=== PATIENT | male | born 1940 | race Caucasian/White ===

== ENCOUNTER 2017-10-28 13:38 | Inpatient (IN) ==
[2017-10-28 14:25] VITALS: BMI 22.3
[2017-10-28] MEDS ORDERED: HYDROCODONE/APAP 5mg/325mg TABLET PO PRN (14:59)
[2017-10-28] MEDS: NS 1,000 ML IV SCH (15:22)
[2017-10-28] MEDS: CEFTRIAXONE 1 G in NS 100 ML IV SCH (16:13)
--- NOTE | 2017-10-28 16:32 | XRay Report ---
Indication: acute hypoxic resp failure PROCEDURE: XR chest 1V: Encounter: Initial Comparison: None Findings: Prominent interstitial and airspace opacity bilaterally without lobar consolidation. Small bilateral effusions. No pneumothorax. Heart size is at the upper limits of normal. Mediastinal contours are within normal limits. Impression: Bilateral infiltrates with an appearance most consistent with moderate to severe pulmonary edema. .
[2017-10-28] MEDS ORDERED: ALBUTEROL 2.5mg/3ml (0.083%) NEB AEROSOL PRN (17:08)
[2017-10-28] MEDS: METHYLPREDNISOLONE SOD SUCC 125mg/2ml INJECTION IVP SCH ×2 (17:41→21:41)
--- NOTE | 2017-10-28 17:41 | History & Physical Report ---
History of Present Illness Date: 10/28/17 Chief complaint: Short of breath HPI: Nando Taylor is a 77 year old male directly admitted from Dr. Bullock's office for acute respiratory failure/hypoxia with saturation of 76% on room air. Mr. Taylor began to feel ill with a cough soon after New Year'. His symptoms became quite a bit worse about a week into October, with worsening cough, productive with pale yellow sputum by this time. He denied having sinus drainage /congestion or dysphagia. His breathing became more short, feeling dyspneic even at rest let alone with activity. He was running fevers and having chills. He has felt weak and lightheaded. He saw Dr. Bullock around 10/22/17 and was diagnosed with influenza and was Rx Tamiflu, but only completed 4 days of this b /c he was started to feel worse. reported hallucinations to Dr. Bullock, but she was not present for interview upon admission. Nando denied any confusion or mental status changes. He has not been eating well, and realized he was becoming dehydrated so started to drink large amounts of water over the last 2- 3 days. Around this time his breathing became quite a bit worse. He started noticing a little leg swelling. He denied chest pain or PND and was still able to sleep in bed rather than propping himself up. He quit smoking 2 days ago. He denied any nausea/vomiting but has had a little diarrhea. He denies seeing any blood in his stool. He denies any urinary pain, frequency, or hematuria. No rashes or wounds. 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 He followed up with Dr. Bullock on 10/28/17, at which time he was coughing so hard he nearly had posttussive emesis and became lightheaded with a coughing attack. Temp was 100.2. As mentioned, he was markedly hypoxic. Dr. Bullock contacted Dr. Hui, and Mr. Taylor was admitted to [facility] as an inpatient for further evaluation/treatment of acute hypoxia and to r/o sepsis. LOS is expected to exceed 2 overnights. Review of Systems All systems PM: 10-point ROS was reviewed, no additional remarkable complaints except - Constitutional Constitutional: Present: chills, fatigue, fever(s), weakness - EENMT Eyes: Absent: change in vision Nose: Absent: obstruction Mouth/Throat: Absent: sore throat, changes in swallowing - Cardiovascular Cardiovascular: Absent: chest pain Vascular: Present: pedal edema - Respiratory Respiratory: Present: cough, dyspnea, dyspnea on exertion, wheezing, excessive phlegm production - Gastrointestinal Gastrointestinal: Present: diarrhea. Absent: abdominal pain, constipation, hematochezia, melena, nausea, vomiting - Genitourinary Genitourinary: Absent: dysuria, hematuria, urinary frequency - Musculoskeletal Musculoskeletal: Present: muscle weakness. Absent: abnormal gait - Integumentary/Breasts Integumentary: Absent: rash, wounds - Neurological Neurological: Present: confusion, weakness. Absent: abnormal gait, frequent falls, headache(s) - Psychiatric Psychiatric: Present: visual hallucinations. Absent: anxiety - Endocrine Endocrine: Present: flushing - Hematologic/Lymphatic Hematologic/Lymphatic: Present: easy bruising - Allergic/Immunologic Allergic/Immunologic: Absent: seasonal rhinorrhea Past Medical History Atrial fibrillation, anticoagulated on Eliquis. Hypertension. Valvular heart disease. COPD. Sleep apnea. Chronic kidney disease stage III. GERD BPH. Anemia. Cataracts. Surgical History: EGD and colonoscopy with polypectomy in July [address] Morataya. Cardioverted in 2005. Inguinal herniorrhaphy in 1998. Hydrocele operation in 1982. Appendectomy in 1953 Family History Updates: Father had CHF and of a heart attack at age 79. Mother had Parkinson's and around age 53. He has 3/2 siblings. A sister and brother had heart disease and sister at age 76. - Social History Smoking status: Current every day smoker (quit on 10/26/17) Packs per day: 0.5 Packs-years: 50 Substance use type: does not use Alcohol intake: current Alcohol intake frequency: 0-2 drinks per day (drinks 1 ounce of wine each night with supper) Current occupational status: employed Current occupation: todd Social history: Primary care physician: Dr. Bullock. Manager [employer]: Dr. Ayala. Youth Manager: Dr. Hitchcock. Medications Home Medications Medication Instructions Recorded Confirmed Type Amiodarone [Pacerone] 1 tab PO DAILY 07/23/17 10/28/17 History Ascorbate Calcium [Vitamin C] 500 mg PO DAILY 07/23/17 10/28/17 History Cholecalciferol (Vitamin D3) 1 tab PO DAILY 07/23/17 10/28/17 History [Vitamin D3] Levothyroxine Sodium 25 mcg PO DAILY 07/23/17 10/28/17 History Tamsulosin [Flomax] 1 cap PO HS 07/23/17 10/28/17 History Vitamin B Complex [Super B-50 1 each PO DAILY 07/23/17 10/28/17 History Complex] Acetaminophen [Tylenol] 500 mg PO O 10/28/17 10/28/17 History Apixaban [Eliquis] 5 mg PO BID 10/28/17 10/28/17 History Allergies Allergy/AdvReac Type Severity Reaction Status Date / Time No Known Allergies Allergy Verified 07/26/17 10:40 Exam Vital Signs: Temperature 97.7 F 10/28/17 14:12 Pulse Rate 89 10/28/17 14:12 Respiratory Rate 22 10/28/17 14:12 Blood Pressure 176/78 H 10/28/17 14:12 Pulse Oximetry 88 L 10/28/17 14:12 Height/Weight/BMI: Height 1.8 m Weight 72.7 kg Body Mass Index 22.3 - Constitutional Present: mild distress, well nourished, well developed - Routine HEENT Exam Head: Present: normocephalic Eye: Present: PERRL. Absent: conjunctival icterus, scleral injection ENT: Present: mucous membranes dry, oropharynx clear - Routine Neck Exam Present: supple. Absent: lymphadenopathy - Routine Respiratory Exam Present: decreased breath sounds, rales (Left), wheezes - Routine Cardiovascular Exam Present: RRR, S1, S2 - Routine Abdominal Exam Present: soft, normoactive bowel sounds, non distended, non tender - Routine Extremities Exam Present: edema (1+ bilateral pedal edema), pulses intact. Absent: calf tenderness - Routine Skin Exam Present: intact, dry, warm Comments: Face is flushed - Routine Neurological Exam Present: alert, oriented X3, CN II-XII intact, moving all extremities, normal speech. Absent: tremors - Routine Psychiatric Exam Present: normal affect, normal thought process, cooperative Results - Labs CBC & Chem 7: 10/28/17 15:19 10/28/17 20:32 Microbiology Results: Microbiology 10/28/17 15:22 Peripheral/Iv Start Blood Culture - Preliminary Culture Initiated - Results Pending 10/28/17 15:19 Peripheral/Iv Start Blood Culture - Preliminary Culture Initiated - Results Pending - ABG Interpretation Attestation: I reviewed and interpreted this ABG. ABG results: 10/28/17 15:35 ABG pH 7.500 H ABG pCO2 32 L ABG pO2 57 L ABG HCO3 25 ABG Total CO2 26.0 ABG O2 Saturation 92.0 L ABG Base Excess 2.3 H - Pulse Oximetry Interpretation Digit-Finger Actions taken: none - Imaging and Cardiology Chest x-ray Status: image reviewed by me Additional comments: Bilateral infiltrates versus pulmonary edema Assessment and Plan (1) Acute respiratory failure with hypoxemia Current visit: Yes Status: Acute Assessment and Plan: Impression Acute hypoxic respiratory failure, present on admission. Hyponatremia (123), present on admission Incompletely treated influenza infection (4 day course of Tamiflu) Bilateral infiltrates, pulmonary edema versus pneumonia Possible sepsis: SIRS criteria include leukocytosis (12.5) and tachypnea (22) COPD with exacerbation. Atrial fibrillation, anticoagulated on Eliquis. Hypertension. Valvular heart disease. Sleep apnea. Chronic kidney disease stage III. GERD BPH. Anemia. Plan Admit, inpatient status under the hospitalist service. Possible sepsis secondary to pneumonia: Rocephin and doxycycline have been initiated. Lactic acid and procalcitonin were both negative. IV fluids were started for hyponatremia and we will recheck sodium later this evening, however, given his chest x-ray findings, we may need to consider diuresis. He also has symptoms consistent with CHF and Dr. Ayala has been consulted. He is able to maintain saturations between 89 and 91% on 6 L of oxygen, however at some point he may need BiPAP. Continue Eliquis, monitor telemetry, continue amiodarone for A fib. For COPD with exacerbation, IV steroids have been started. Will schedule DuoNeb treatments every 4 hours and Pulmicort twice a day. We'll ask respiratory to provide tobacco cessation information. Nicotine patch will be available if needed. CODE STATUS: Patient would like to discuss with family before making a decision and for this reason will remain a full code. Admission orders were discussed with Dr. Hui. DVT Prophylaxis: Eliquis Resuscitation Status: Full Code - Physician Narrative Physician: Stephie Hui MD Narrative: Date: 10/28/17 Time: 2129 I have independently evaluated and examined this patient. I reviewed the chart, the patient's history, and the DEAL ARCHITECT/PA's documented findings as above. We discussed and formulated the assessment and plan as above with additions as below: Mr. Taylor was seen earlier in the day at which time he described progressive dyspnea and cough productive of pale yellow sputum. Cough caused him to feel lightheaded and weak and he was concerned he was getting dehydrated. His appetite has been impaired and he's had trouble sleeping. 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 He was recently treated with Tamiflu for total of 4 days after which it was discontinued because his symptoms were worsening. Patient was acutely hypoxic when he was seen in the office today were oxygen saturation was 72% on room air and coarse crackles at the left base were described. Patient is an ill-appearing male who is alert when I spoke with him. Respirations were labored although airflow is fairly good and there are coarse sounds at the left > right bases; no wheezing was appreciated Cardiac rhythm is regular with low-grade tachycardia; trace edema (SCDs on with some compression of edema evident) Chest x-ray reviewed by myself demonstrating increased interstitial markings bilaterally suggestive of pulmonary edema-cannot exclude viral pneumonia, infiltrates may be slightly more dense on the left than the right EKG also reviewed by myself demonstrating sinus rhythm, poor R-wave progression in the precordial leads, but no acute ST/T-wave changes. Sodium 123, blood gas reviewed, minor leukocytosis; proBNP 3400, troponin 0.021- 0.022 Urine studies will be obtained for evaluation of hyponatremia-would be consistent with CHF; does not appear to be significantly volume overloaded although there is some minor edema in the lower extremities. Significant be hypoxic, may require BiPAP for support due to tachypnea evident earlier. Empiric antibiotics although suspect viral rather than bacterial infection due to recent history. RT to induce sputum for culture. Discussed with Dr. Ayala will see in consultation due to elevated BNP and radiographic changes suggesting heart failure. Discussed with Dr. Bullock. Hospital Course Summary Disclaimer: The visit summary below is not to be considered part of the above Progress Note. Hospital Course: 10/28/17 Admit, inpatient status under the hospitalist service. Possible sepsis secondary to pneumonia: Rocephin and doxycycline have been initiated. Lactic acid and procalcitonin were both negative. IV fluids were started for hyponatremia and we will recheck sodium later this evening, however, given his chest x-ray findings, we may need to consider diuresis. He also has symptoms consistent with CHF and Dr. Ayala has been consulted. He is able to maintain saturations between 89 and 91% on 6 L of oxygen, however at some point he may need BiPAP. Continue Eliquis, monitor telemetry, continue amiodarone for A fib. For COPD with exacerbation, IV steroids have been started. Will schedule DuoNeb treatments every 4 hours and Pulmicort twice a day. We'll ask respiratory to provide tobacco cessation information. Nicotine patch will be available if needed. CODE STATUS: Patient would like to discuss with family before making a decision and for this reason will remain a full code.
[2017-10-28] MEDS: BUDESONIDE INH.SOLN 0.5mg/2ml NEB IPPB SCH (19:58)
[2017-10-28] MEDS: ALBUTEROL/IPRATROPIUM 2.5mg-0.5mg/3ml NEB AEROSOL SCH ×2 (19:58→22:44)
[2017-10-28] MEDS: AMIODARONE 200 MG TABLET PO SCH (21:41)
[2017-10-28] MEDS: APIXABAN 5 MG TABLET PO SCH (21:42)
[2017-10-28] MEDS: TAMSULOSIN 0.4 MG CAPSULE PO SCH (21:42)
[2017-10-29] MEDS: ALBUTEROL/IPRATROPIUM 2.5mg-0.5mg/3ml NEB AEROSOL SCH ×6 (01:20→19:35)
[2017-10-29] MEDS: NS 1,000 ML IV SCH ×3 (01:55→22:28)
[2017-10-29] MEDS: METHYLPREDNISOLONE SOD SUCC 125mg/2ml INJECTION IVP SCH ×4 (03:04→21:07)
[2017-10-29] MEDS: BUDESONIDE INH.SOLN 0.5mg/2ml NEB IPPB SCH ×2 (07:55→19:35)
[2017-10-29] MEDS ORDERED: AMIODARONE 200 MG TABLET PO SCH (09:00)
[2017-10-29] MEDS: APIXABAN 5 MG TABLET PO SCH ×2 (09:17→21:09)
[2017-10-29] MEDS: LEVOTHYROXINE 25 MCG TABLET PO SCH (09:18)
--- NOTE | 2017-10-29 11:31 | Cardiology Consult Note ---
<Lilian Davis - Last Filed: 11/01/17 09:48> History of Present Illness Consult date: 10/28/17 Requesting physician: Stephie Hui Consult reason: congestive heart failure Chief complaint: dyspnea, cough History of present illness: Nando is a 77 year old male who is known to Dr. Ayala with a history of precordial pain, PAF, Aortic dilation, NR AoV insufficiency, CAD and HLD who was admitted from Dr. Bullock's office for acute respiratory failure/hypoxia with saturation of 76% on room air. He first began to feel ill with a cough soon after ' and his symptoms became quite a bit worse about a week into October, with worsening cough, productive with pale yellow sputum by this time. His breathing became more short, feeling dyspneic even at rest let alone with activity. He was running fevers and having chills. He has felt weak and lightheaded. He was diagnosed with influenza and was Rx Tamiflu, but only completed 4 days of this b/c he was started to feel worse. He has not been eating well, and realized he was becoming dehydrated so started to drink large amounts of water over the last 2-3 days. His breathing became quite a bit worse. He started noticing a little leg swelling. He denied chest pain or PND and was still able to sleep in bed rather than propping himself up. He quit smoking 2 days ago. He was admitted to [facility] as an inpatient for further evaluation/treatment of acute hypoxia and to r/o sepsis. Dr. Ayala is consulted for evaluation of CHF and we appreciate the consult Review of Systems - Constitutional Constitutional: Present: as per HPI, chills, fever(s), weakness - EENMT Eyes: Absent: change in vision Balance: Absent: vertigo Mouth/Throat: Absent: sore throat - Cardiovascular Cardiovascular: Present: dyspnea on exertion, edema. Absent: chest pain, palpitations, syncope, orthopnea Vascular: Present: pedal edema - Respiratory Respiratory: Present: cough, dyspnea on exertion, chest congestion - Gastrointestinal Gastrointestinal: Present: diarrhea. Absent: abdominal pain, nausea, vomiting - Genitourinary Genitourinary: Absent: dysuria - Integumentary/Breasts Integumentary: Absent: rash - Neurological Neurological: Present: dizziness - Endocrine Endocrine: Absent: palpitations PFSH Patient Stated Medical History Cataracts Yes Other HEENT Yes: FREQUENT COLDS Cardiac Arrhythmia Yes: hx a fib Hypertension Yes Valvular Heart Disease Yes Chronic Obstructive Pulmonary Yes Disease (COPD) Sleep Apnea Yes: does not have machine, declines Gastroesophageal Reflux Yes Disease Hx Benign Prostatic Yes Hyperplasia Hx Renal Disease Yes: CKD STAGE 3 Other Yes: CK STAGE 3- SEE DR BAKER Anemia Yes Other Infectious influenza+ 10/22/2017 Surgical History: EGD and colonoscopy with polypectomy in July [address] Morataya. Cardioverted in 2005. Inguinal herniorrhaphy in 1998. Hydrocele operation in 1982. Appendectomy in 1953 Family History: Father - CHF Mother - Parkinson's disease Sister - CV disease - Social History Smoking status: Current every day smoker (quit on 10/26/17) Time spent discussing smoking cessation with patient: 3 to 10 minutes Substance use type: does not use Alcohol intake frequency: does not drink Housing: house Household members: spouse Current occupational status: employed Current occupation: todd Current residence: Apartment/Private Home Medications Home Medications Medication Instructions Recorded Confirmed Type Amiodarone [Pacerone] 1 tab PO DAILY 07/23/17 10/28/17 History Ascorbate Calcium [Vitamin C] 500 mg PO DAILY 07/23/17 10/28/17 History Cholecalciferol (Vitamin D3) 1 tab PO DAILY 07/23/17 10/28/17 History [Vitamin D3] Levothyroxine Sodium 25 mcg PO DAILY 07/23/17 10/28/17 History Tamsulosin [Flomax] 1 cap PO HS 07/23/17 10/28/17 History Vitamin B Complex [Super B-50 1 each PO DAILY 07/23/17 10/28/17 History Complex] Acetaminophen [Tylenol] 500 mg PO O 10/28/17 10/28/17 History Apixaban [Eliquis] 5 mg PO BID 10/28/17 10/28/17 History Allergies Allergy/AdvReac Type Severity Reaction Status Date / Time No Known Allergies Allergy Verified 07/26/17 10:40 Exam Vital signs: Temperature 96.7 F L 10/29/17 06:00 Pulse Rate 79 10/29/17 07:00 Respiratory Rate 24 10/29/17 07:55 Blood Pressure 147/74 H 10/29/17 06:00 Pulse Oximetry 97 10/29/17 07:55 - Constitutional mild distress, well nourished, cooperative - Routine HEENT Exam Head: Present: normocephalic ENT: Present: mucous membranes moist - Routine Neck Exam Absent: JVD, carotid bruit - Routine Chest/Breast/Axilla Exam Chest wall: Absent: tenderness - Routine Respiratory Exam Present: decreased breath sounds, CTA bilaterally - Routine Cardiovascular Exam Present: RRR, murmur (I/). Absent: JVD - Routine Abdominal Exam Present: soft, normoactive bowel sounds - Routine Extremities Exam Present: no edema - Routine Skin Exam Present: intact, dry, warm - Routine Neurological Exam Present: alert, oriented X3 - Routine Psychiatric Exam Present: normal affect, normal thought process Results 11/01/17 03:50 11/01/17 03:50 Cardiac Enzymes 10/28/17 10/28/17 10/29/17 Range/Units 15:19 20:32 05:03 AST 35 (17-59) U/L Troponin I 0.021 0.022 < 0.012 (0-0.12) ng/ml B-Natriuretic Peptide 3400 H (0-175) pg/mL Coagulation 10/28/17 Range/Units 15:19 B-Natriuretic Peptide 3400 H (0-175) pg/mL CBC 10/28/17 10/29/17 Range/Units 15:19 05:03 WBC 12.5 H 9.1 (4.5-11.0) T/MM3 RBC 3.93 L 3.72 L (4.50-5.90) M/MM3 Hgb 12.4 L 11.6 L (13.5-17.5) GM/DL Hct 34.7 L 33.2 L (41-53) % Plt Count 359 361 (130-400) T/MM3 Neut # (Auto) Not performed Not performed Lymph # (Auto) Not performed Not performed Burke # (Auto) Not performed Not performed Eos # (Auto) Not performed Not performed Baso # (Auto) Not performed Not performed Comprehensive Metabolic Panel 10/28/17 10/28/17 10/28/17 Range/Units 15:19 20:32 22:05 Sodium 123 L 123 L 122 L (134-144) MEQ/L Potassium 4.2 (3.6-5) MEQ/L Chloride 89 L (98-107) MEQ/L Carbon Dioxide 26 (22-30) MEQ/L BUN 28.0 H (9-20) MG/DL Creatinine 1.1 (0.8-1.5) MG/DL Glucose 128 H (75-110) MG/DL Calcium 8.5 (8.4-10.2) MG/DL AST 35 (17-59) U/L ALT 51 (21-72) U/L Alkaline Phosphatase 101 (38-126) U/L Total Protein 6.4 (6.3-8.2) G/DL Albumin 3.3 L (3.5-5.0) G/DL 10/29/17 Range/Units 05:03 Sodium 126 L (134-144) MEQ/L Potassium 4.2 (3.6-5) MEQ/L Chloride 95 L D (98-107) MEQ/L Carbon Dioxide 24 (22-30) MEQ/L BUN 24.0 H (9-20) MG/DL Creatinine 0.9 D (0.8-1.5) MG/DL Glucose 180 H (75-110) MG/DL Calcium 8.1 L (8.4-10.2) MG/DL AST (17-59) U/L ALT (21-72) U/L Alkaline Phosphatase (38-126) U/L Total Protein (6.3-8.2) G/DL Albumin 3.0 L (3.5-5.0) G/DL Intake and Output 10/28/17 10/29/17 10/29/17 22:59 06:59 14:59 Intake Total 940 / 940 1000 / 1000 Output Total 175 / 175 Balance 765 / 765 1000 / 1000 Intake: IV 100 / 100 1000 / 1000 Ceftriaxone 1 g In Ns 100 ml @ 100 / 100 200 mls/hr IV Q24H CHRIS Rx#: [id number] Ns 1,000 ml @ 100 mls/hr IV . 1000 / 1000 Q10H CHRIS Rx#:[id number] Oral 840 / 840 Output: Urine 175 / 175 Other: Urine Appearance Clear Urine Color Dark Lissette Yellow Urine Odor Foul Stool Color Brown Stool Consistency Soft Formed Size of Bowel Movement Small # Voids 1 1 Weight 164 lb 3.91 oz Patient Weight 10/30/17 06:59 Weight 164 lb 3.91 oz - Imaging and Cardiology Echo: report reviewed EKG results: image reviewed Imaging & Cardiology Narrative: Date of Exam: 10/28/17 Ordering Provider: Stephie Hui MD Type of Exam(s): XR chest 1V Reason for Exam(s): acute hypoxic resp failure Indication: acute hypoxic resp failure PROCEDURE: XR chest 1V: Encounter: Initial Comparison: None Findings: Prominent interstitial and airspace opacity bilaterally without lobar consolidation. Small bilateral effusions. No pneumothorax. Heart size is at the upper limits of normal. Mediastinal contours are within normal limits. Impression: Bilateral infiltrates with an appearance most consistent with moderate to severe pulmonary edema. 10/29/17 11:32 11/01/17 09:52 Date of Exam: 10/29/17 Type of Exam(s): US echo doppler complete DATE OF PROCEDURE 10/29/2017 This is a two-dimensional echo with spectral Doppler, color-flow and M-mode. It was obtained in a patient with congestive heart failure. Left atrial dimension is normal. Left ventricular end-diastolic dimension is normal. Left ventricular wall thickness is normal. LV systolic function is normal with ejection fraction of about 55%. Right atrium is normal. Right ventricle is normal. Aortic root dimension is normal. Mitral valve is morphologically normal with mild mitral regurgitation. Aortic valve is a trileaflet structure with mild fibrocalcific changes with no stenosis. Mild-to- moderate aortic insufficiency is present. Tricuspid valve shows mild tricuspid regurgitation with mild pulmonary hypertension with estimated pulmonary artery systolic pressure of 36. Pulmonary valve shows trace of pulmonary insufficiency. There is no pericardial effusion. IMPRESSION 1. Normal LV systolic function with ejection fraction of 55%. 2. Mild mitral regurgitation. 3. Aortic sclerosis with [id number] aortic insufficiency. 4. Mild tricuspid regurgitation with mild pulmonary hypertension with estimated pulmonary artery pressure of 36. 5. Trace of pulmonary insufficiency. EKG interpretations - EKG EKG results cardiology: sinus rhythm - Blocks, axis, hypertrophy, ST abn Repolarization changes or abnormalities: Q-T interval prolongation (QTC 461) Assessment and Plan - Assessment and Plan (1) Pulmonary edema Status: Acute Bilateral infiltrates most consistent with moderate to severe pulmonary edema seen on admission CXR - Diurese with Lasix 40mg IV q 12H - Replace potassium 10 meq BID - Fluid restriction please, NA 122 today (2) Acute respiratory failure with hypoxemia Status: Acute Requires high flow NC at 8L - per attending (3) Paroxysmal atrial fibrillation Status: Chronic Continue Amiodarone for antiarrhythmic therapy - Continue Eliquis for stroke prevention. (4) Atherosclerotic heart disease of [place] coronary artery without angina pectoris Status: Chronic (5) Mixed hyperlipidemia Status: Chronic Started on Atorvastatin on October 13, 2017. -LFTs done on admission 10/28/17. -Needs LFTs and Lipids in 6 weeks. (6) Aortic aneurysm without rupture Status: Chronic recent CT showed 4.8cm dilation, continue routine monitoring (7) Hyponatremia Status: Acute Na 122 today Restrict fluid to 1800mL - Assessment and Plan Pulmonary edema: Bilateral infiltrates most consistent with moderate to severe pulmonary edema seen on admission CXR - Diurese with Lasix 40mg IV q 12H - Replace potassium 10 meq BID - Fluid restriction please, NA 122 today Acute Resp. Failure: Requires high flow NC at 8L - per attending Hyponatremia: Na 122 today - Restrict fluid to 1800mL A Fib: Continue Amiodarone for antiarrhythmic therapy - Continue Eliquis for stroke prevention. HLD: Started on Atorvastatin on October 13, 2017. -Needs LFTs and Lipids in 6 weeks. Thank you for allowing us to participate in this patients care Hospital Course Summary Disclaimer: The visit summary below is not to be considered part of the above Progress Note. Hospital Course: 10/28/17 Admit, inpatient status under the hospitalist service. Possible sepsis secondary to pneumonia: Rocephin and doxycycline have been initiated. Lactic acid and procalcitonin were both negative. IV fluids were started for hyponatremia and we will recheck sodium later this evening, however, given his chest x-ray findings, we may need to consider diuresis. He also has symptoms consistent with CHF and Dr. Ayala has been consulted. He is able to maintain saturations between 89 and 91% on 6 L of oxygen, however at some point he may need BiPAP. Continue Eliquis, monitor telemetry, continue amiodarone for A fib. For COPD with exacerbation, IV steroids have been started. Will schedule DuoNeb treatments every 4 hours and Pulmicort twice a day. We'll ask respiratory to provide tobacco cessation information. Nicotine patch will be available if needed. CODE STATUS: Patient would like to discuss with family before making a decision and for this reason will remain a full code. <Len Ayala - Last Filed: 11/03/17 13:04> [facility]LY [facility] Patient Stated Medical History Cataracts Yes Other HEENT Yes: FREQUENT COLDS Cardiac Arrhythmia Yes: hx a fib Hypertension Yes Valvular Heart Disease Yes Chronic Obstructive Pulmonary Yes Disease (COPD) Sleep Apnea Yes: does not have machine, declines Gastroesophageal Reflux Yes Disease Hx Benign Prostatic Yes Hyperplasia Hx Renal Disease Yes: CKD STAGE 3 Other Yes: CK STAGE 3- SEE DR BAKER Anemia Yes Other Infectious influenza+ 10/22/2017 Exam Vital signs: Temperature 96.4 F L 11/02/17 07:30 Pulse Rate 90 11/02/17 13:45 Respiratory Rate 19 11/02/17 08:50 Blood Pressure 161/73 H 11/02/17 07:30 Pulse Oximetry 84 L 11/02/17 13:45 Results 11/01/17 03:50 11/02/17 04:17 Intake and Output 11/02/17 11/03/17 11/03/17 22:59 06:59 14:59 Intake Total 300 / 300 Output Total 600 / 600 Balance -300 / -300 Intake: Oral 300 / 300 Output: Urine 600 / 600 Other: Urine Color Yellow Assessment and Plan - Attestation Attestation Narrative: 11/03/17 13:04 Recommendation After examining the patient I agree with the above assessment. I am involved in the formulation of the patient's plan of care. - Assessment and Plan (1) Acute respiratory failure with hypoxemia Status: Acute (2) Atherosclerotic heart disease of [place] coronary artery without angina pectoris Status: Chronic (3) Mixed hyperlipidemia Status: Chronic (4) Aortic aneurysm without rupture Status: Chronic (5) Paroxysmal atrial fibrillation Status: Chronic (6) Pulmonary edema Status: Acute (7) Hyponatremia Status: Acute Hospital Course Summary Disclaimer: The visit summary below is not to be considered part of the above Progress Note.
--- NOTE | 2017-10-29 14:01 | Progress Note ---
- Date 10/29/17 Subjective: Patient is seen sitting in his chair after lunch. He reports he is better than yesterday. Not coughing much. Appetite is good, but not able to eat much. No chest pain, nausea vomiting. No swelling in extremities. No bowel movement yet this hospitalization. He was having diarrhea prior to coming in. Objective Vital signs: Temperature 96.7 F L 10/29/17 06:00 Pulse Rate 79 10/29/17 07:00 Respiratory Rate 24 10/29/17 11:18 Blood Pressure 147/74 H 10/29/17 06:00 Pulse Oximetry 94 10/29/17 11:18 Height/Weight/BMI: Height 1.8 m Weight 74.5 kg Body Mass Index 22.3 - Constitutional Present: no acute distress, well nourished, well developed - Routine HEENT Exam Head: Present: normocephalic, atraumatic - Routine Respiratory Exam Present: decreased breath sounds, CTA bilaterally, distant breath sounds. Absent: wheezes - Routine Cardiovascular Exam Present: RRR. Absent: murmur - Routine Abdominal Exam Present: soft, normoactive bowel sounds, non distended. Absent: tenderness - Routine Extremities Exam Present: no edema, normal capillary refill - Routine Skin Exam Present: dry, warm - Routine Neurological Exam Present: alert, oriented X3 - Routine Lymphatic Exam Lymphatic: Absent: adenopathy - Routine Psychiatric Exam Present: normal affect, cooperative Results - Labs CBC & Chem 7: 10/29/17 05:03 10/29/17 19:39 Microbiology Results: Microbiology 10/28/17 15:22 Peripheral/Iv Start Blood Culture - Preliminary Culture Initiated - Results Pending 10/28/17 15:19 Peripheral/Iv Start Blood Culture - Preliminary Culture Initiated - Results Pending - ABG Interpretation ABG results: 10/28/17 15:35 ABG pH 7.500 H ABG pCO2 32 L ABG pO2 57 L ABG HCO3 25 ABG Total CO2 26.0 ABG O2 Saturation 92.0 L ABG Base Excess 2.3 H Assessment and Plan (1) Acute respiratory failure with hypoxemia Current visit: Yes Status: Acute Assessment and Plan: Impression Acute hypoxic respiratory failure, present on admission. Hyponatremia (123), present on admission Incompletely treated influenza infection (4 day course of Tamiflu) Bilateral infiltrates, pulmonary edema versus pneumonia Possible sepsis: SIRS criteria include leukocytosis (12.5) and tachypnea (22) COPD with exacerbation. Atrial fibrillation, anticoagulated on Eliquis. Hypertension. Valvular heart disease. Sleep apnea. Chronic kidney disease stage III. GERD BPH. Anemia. Plan Leukocytosis has improved. WBC 12.5-->9.1. Continues on ceftriaxone and doxycycline for coverage of possible bacterial pneumonia. Hyponatremia improving on 122-->126. Fena score 0% - consistent with pre-renal etiology as was expected. Continuing on normal saline for his hyponatremia. 8 L high flow oxygen to maintain sats greater than 90%. Weight is up almost 2 kg. Currently not on any diuretics. Cardiology has been consulted. Echo is pending. Appreciate Dr. Ayala's input. Continue IV steroids, DuoNeb and Pulmicort. Vitals are stable. Labs reviewed. DVT Prophylaxis: SCD's Resuscitation Status: Full Code - Physician Narrative Physician: Stephie Hui MD Narrative: Date: 10/29/17 Time: 1949 I have independently evaluated and examined this patient. I reviewed the chart, the patient's history, and the VIDEO GAME TECHNICIAN/PA's documented findings as above. We discussed and formulated the assessment and plan as above with additions as below: Mr. Taylor complains of sinus congestion due to continuous oxygen use; he is unsure if dyspnea has improved or not and really hasn't been moving around enough to know if he is short of breath with activities. He continues to wheeze some and has not had enough sputum production to collect a sample. He denied lightheadedness. Patient is alert and in no distress at time of assessment but remains on 9 L supplemental oxygen. Respirations are nonlabored with good airflow, crackles are present one half up lung anand posteriorly and more evident on the left than the right Regular cardiac rhythm FeNa <0.03, urine sodium <5, urine creatinine 124.6-kidneys at least believe patient is dehydrated; creatinine improved with fluids overnight Chest x-ray with diffuse increased bilateral infiltrates, possible heart failure although can't exclude viral pneumonia Diuresis initiated per cardiology, echo pending-A she reports history of a dilated aortic root at 4.8 cm-may well have significant aortic insufficiency. Sodium improving progressively, continue to monitor twice daily. Repeat chest x-ray in a.m., continue steroids. d/w cardiology. Hospital Course Summary Disclaimer: The visit summary below is not to be considered part of the above Progress Note. Hospital Course: 10/28/17 Admit, inpatient status under the hospitalist service. Possible sepsis secondary to pneumonia: Rocephin and doxycycline have been initiated. Lactic acid and procalcitonin were both negative. IV fluids were started for hyponatremia and we will recheck sodium later this evening, however, given his chest x-ray findings, we may need to consider diuresis. He also has symptoms consistent with CHF and Dr. Ayala has been consulted. He is able to maintain saturations between 89 and 91% on 6 L of oxygen, however at some point he may need BiPAP. Continue Eliquis, monitor telemetry, continue amiodarone for A fib. For COPD with exacerbation, IV steroids have been started. Will schedule DuoNeb treatments every 4 hours and Pulmicort twice a day. We'll ask respiratory to provide tobacco cessation information. Nicotine patch will be available if needed. CODE STATUS: Patient would like to discuss with family before making a decision and for this reason will remain a full code. 10/29/17 Leukocytosis has improved. WBC 12.5-->9.1. Continues on ceftriaxone and doxycycline for coverage of possible bacterial pneumonia. Hyponatremia improving on 122-->126. Fena score 0% - consistent with pre-renal etiology as was expected. Continuing on normal saline for his hyponatremia. 8 L high flow oxygen to maintain sats greater than 90%. Weight is up almost 2 kg with improved Cr. Currently not on any diuretics. FeNa < 0.03% insistent with prerenal state despite radiographic findings suggestive heart failure. Cardiology has been consulted. Echo is pending. Appreciate Dr. Ayala's input. Continue IV steroids, DuoNeb and Pulmicort.
[2017-10-29] MEDS: CEFTRIAXONE 1 G in NS 100 ML IV SCH (14:40)
[2017-10-29] MEDS: FUROSEMIDE 40 MG/4 ML INJECTION IVP SCH ×2 (17:11→21:10)
[2017-10-29] MEDS: TAMSULOSIN 0.4 MG CAPSULE PO SCH (21:09)
[2017-10-29] MEDS: AMIODARONE 200 MG TABLET PO SCH (21:09)
[2017-10-30] MEDS: ALBUTEROL/IPRATROPIUM 2.5mg-0.5mg/3ml NEB AEROSOL SCH ×7 (00:20→23:25)
[2017-10-30] MEDS: METHYLPREDNISOLONE SOD SUCC 125mg/2ml INJECTION IVP SCH ×4 (04:05→21:36)
[2017-10-30] MEDS: BUDESONIDE INH.SOLN 0.5mg/2ml NEB IPPB SCH ×2 (08:00→19:35)
[2017-10-30] MEDS: NS 1,000 ML IV SCH (09:23)
[2017-10-30] MEDS: LEVOTHYROXINE 25 MCG TABLET PO SCH (09:23)
[2017-10-30] MEDS: APIXABAN 5 MG TABLET PO SCH ×2 (09:24→21:24)
[2017-10-30] MEDS: FUROSEMIDE 40 MG/4 ML INJECTION IVP SCH ×2 (09:25→21:23)
[2017-10-30] MEDS: NICOTINE 14 MG PATCH TD PRN (09:27)
--- NOTE | 2017-10-30 11:29 | Progress Note ---
- Date 10/30/17 Subjective: Feeling a little better, still on 6-7L 02 however. Dyspneic with any exertion. Appetite improved. Slept okay. Bowels have not moved in a couple of days per his report. Objective Vital signs: Temperature 96.4 F L 10/30/17 08:00 Pulse Rate 90 10/30/17 08:00 Respiratory Rate 18 10/30/17 08:00 Blood Pressure 150/73 H 10/30/17 08:00 Pulse Oximetry 95 10/30/17 08:00 Height/Weight/BMI: Height 1.8 m Weight 74.5 kg Body Mass Index 22.3 - Constitutional Present: no acute distress, well nourished, well developed - Routine HEENT Exam Head: Present: normocephalic, atraumatic Eye: Present: EOMI. Absent: conjunctival icterus ENT: Present: mucous membranes moist, oropharynx clear - Routine Respiratory Exam Present: accessory muscle use, dyspnea, decreased breath sounds, rhonchi. Absent: wheezes, crackles - Routine Cardiovascular Exam Present: tachycardia - Routine Abdominal Exam Present: soft, non distended, non tender - Routine Extremities Exam Present: no edema, pulses intact - Routine Musculoskeletal Exam Musculoskeletal: Present: no tenderness - Routine Skin Exam Present: dry, warm. Absent: rash - Routine Neurological Exam Present: alert, normal speech - Routine Psychiatric Exam Present: normal affect Results - Labs CBC & Chem 7: 10/30/17 04:17 10/30/17 04:17 Microbiology Results: Microbiology 10/29/17 15:25 Sputum, Expectorated Gram Stain - Final 10/29/17 15:25 Sputum, Expectorated Sputum Culture - Preliminary Culture Initiated - Results Pending 10/28/17 15:19 Peripheral/Iv Start Blood Culture - Preliminary No Growth After 1 Day 10/28/17 15:22 Peripheral/Iv Start Blood Culture - Preliminary No Growth After 1 Day - ABG Interpretation ABG results: 10/28/17 15:35 ABG pH 7.500 H ABG pCO2 32 L ABG pO2 57 L ABG HCO3 25 ABG Total CO2 26.0 ABG O2 Saturation 92.0 L ABG Base Excess 2.3 H Assessment and Plan Assessment and Plan: Impression Acute hypoxic respiratory failure, present on admission. Hyponatremia (123), present on admission--> improved to 131 today --> Urine Na low, unclear if hypovolemic at admission, will monitor Incompletely treated influenza infection (4 day course of Tamiflu) Bilateral infiltrates, pulmonary edema versus pneumonia, improved with diuresis --> suspect some pulm edema + pneumonitis Possible sepsis: SIRS criteria include leukocytosis (12.5) and tachypnea (22) --> continue treatment with antibiotics + steroids + lasix; hold further IVF acutely COPD with exacerbation, on nebulized tx + steroids Atrial fibrillation, anticoagulated on Eliquis Hypertension. Valvular heart disease. Sleep apnea. Chronic kidney disease stage III. GERD BPH Anemia. Plan Leukocytosis worsening, likely due to steroids. Continues on ceftriaxone and doxycycline for coverage of possible bacterial pneumonia. Hyponatremia improving on saline, now taking po, will stop IVF and monitor on lasix 40 IV Q12H. Cr stbable at 1.1. 02 requirements improving slowly, continue to monitor on diuretics, steroids, antibiotics and nebulized treatments. Cardiology has been consulted. Echo is pending. Appreciate Dr. Ayala's input. Vitals are stable. Labs reviewed. Will repeat labs in AM for surveillance. Laxatives ordered prn; will schedule tomorrow if he has not had a bowel movement. - Physician Narrative Narrative: Date: 10/30/17 Time: 1126 Hospital Course Summary Disclaimer: The visit summary below is not to be considered part of the above Progress Note. Hospital Course: 10/28/17 Admit, inpatient status under the hospitalist service. Possible sepsis secondary to pneumonia: Rocephin and doxycycline have been initiated. Lactic acid and procalcitonin were both negative. IV fluids were started for hyponatremia and we will recheck sodium later this evening, however, given his chest x-ray findings, we may need to consider diuresis. He also has symptoms consistent with CHF and Dr. Ayala has been consulted. He is able to maintain saturations between 89 and 91% on 6 L of oxygen, however at some point he may need BiPAP. Continue Eliquis, monitor telemetry, continue amiodarone for A fib. For COPD with exacerbation, IV steroids have been started. Will schedule DuoNeb treatments every 4 hours and Pulmicort twice a day. We'll ask respiratory to provide tobacco cessation information. Nicotine patch will be available if needed. CODE STATUS: Patient would like to discuss with family before making a decision and for this reason will remain a full code. 10/29/17 Leukocytosis has improved. WBC 12.5-->9.1. Continues on ceftriaxone and doxycycline for coverage of possible bacterial pneumonia. Hyponatremia improving on 122-->126. Fena score 0% - consistent with pre-renal etiology as was expected. Continuing on normal saline for his hyponatremia. 8 L high flow oxygen to maintain sats greater than 90%. Weight is up almost 2 kg with improved Cr. Currently not on any diuretics. FeNa < 0.03% insistent with prerenal state despite radiographic findings suggestive heart failure. Cardiology has been consulted. Echo is pending. Appreciate Dr. Ayala's input. Continue IV steroids, DuoNeb and Pulmicort. 10/30/17 Leukocytosis worsening, likely due to steroids. Continues on ceftriaxone and doxycycline for coverage of possible bacterial pneumonia. Hyponatremia improving on saline, now taking po, will stop IVF and monitor on lasix 40 IV Q12H. Cr stbable at 1.1. 02 requirements improving slowly, continue to monitor on diuretics, steroids, antibiotics and nebulized treatments. Cardiology has been consulted. Echo is pending. Appreciate Dr. Ayala's input. Vitals are stable. Labs reviewed. Will repeat labs in AM for surveillance. Laxatives ordered prn; will schedule tomorrow if he has not had a bowel movement.
--- NOTE | 2017-10-30 12:17 | Echocardiogram ---
DATE OF PROCEDURE 10/29/2017 This is a two-dimensional echo with spectral Doppler, color-flow and M-mode. It was obtained in a patient with congestive heart failure. Left atrial dimension is normal. Left ventricular end-diastolic dimension is normal. Left ventricular wall thickness is normal. LV systolic function is normal with ejection fraction of about 55%. Right atrium is normal. Right ventricle is normal. Aortic root dimension is normal. Mitral valve is morphologically normal with mild mitral regurgitation. Aortic valve is a trileaflet structure with mild fibrocalcific changes with no stenosis. Mild-to- moderate aortic insufficiency is present. Tricuspid valve shows mild tricuspid regurgitation with mild pulmonary hypertension with estimated pulmonary artery systolic pressure of 36. Pulmonary valve shows trace of pulmonary insufficiency. There is no pericardial effusion. IMPRESSION 1. Normal LV systolic function with ejection fraction of 55%. 2. Mild mitral regurgitation. 3. Aortic sclerosis with [id number] aortic insufficiency. 4. Mild tricuspid regurgitation with mild pulmonary hypertension with estimated pulmonary artery pressure of 36. 5. Trace of pulmonary insufficiency. MTDD
--- NOTE | 2017-10-30 15:04 | XRay Report ---
Indication: hypoxia PROCEDURE: XR chest 2V: Encounter: Initial Comparison: 10/28/2017 Findings: There is mild cardiomegaly with scattered patchy predominant perihilar interstitial parenchymal opacity, similar to prior exam. No definite lobar consolidation or pleural effusion. There is mild tortuosity of the descending thoracic aorta. There is mild degenerative disc disease of the thoracic spine. The vertebral body heights appear relatively well-preserved. Trachea is midline. No subdiaphragmatic free air. Impression: Cardiomegaly with moderate diffuse by predominant perihilar interstitial parenchymal opacity without lobar consolidation or pleural effusion. .
[2017-10-30] MEDS: CEFTRIAXONE 1 G in NS 100 ML IV SCH (16:34)
[2017-10-30] MEDS: TAMSULOSIN 0.4 MG CAPSULE PO SCH (21:24)
[2017-10-30] MEDS: AMIODARONE 200 MG TABLET PO SCH (21:24)
[2017-10-30] MEDS: SENNA + DOCUSATE TABLET PO PRN (21:48)
[2017-10-30] MEDS: NICOTINE PATCH REMOVAL TD PRN (21:49)
[2017-10-31] MEDS: ALBUTEROL/IPRATROPIUM 2.5mg-0.5mg/3ml NEB AEROSOL SCH ×5 (03:55→23:40)
[2017-10-31] MEDS: METHYLPREDNISOLONE SOD SUCC 125mg/2ml INJECTION IVP SCH ×4 (03:55→21:03)
[2017-10-31] MEDS: APIXABAN 5 MG TABLET PO SCH ×2 (09:08→21:03)
[2017-10-31] MEDS: NICOTINE 14 MG PATCH TD PRN (09:10)
[2017-10-31] MEDS: FUROSEMIDE 40 MG/4 ML INJECTION IVP SCH (09:21)
[2017-10-31] MEDS: LEVOTHYROXINE 25 MCG TABLET PO SCH (09:22)
[2017-10-31] MEDS: SENNA + DOCUSATE TABLET PO PRN ×2 (09:22→21:09)
[2017-10-31] MEDS: BUDESONIDE INH.SOLN 0.5mg/2ml NEB IPPB SCH ×2 (09:25→23:40)
--- NOTE | 2017-10-31 11:24 | Progress Note ---
- Date 10/31/17 Subjective: Feeling a little better today; 02 weaned down to 4-5L HF mask. Appetite improved, eating breakfast currently. TTE reviewed with normal EF, mildly elevated PA pressure, mild to mod AI No fevers overnight. Still coughing and dyspneic but feels better. No chest pain, chills. Objective Vital signs: Temperature 96.3 F L 10/31/17 00:39 Pulse Rate 81 10/31/17 08:00 Respiratory Rate 24 10/31/17 09:25 Blood Pressure 157/68 H 10/31/17 00:39 Pulse Oximetry 97 10/31/17 09:25 Height/Weight/BMI: Height 1.8 m Weight 74.4 kg Body Mass Index 22.3 - Constitutional Present: no acute distress, well nourished, well developed - Routine HEENT Exam Head: Present: normocephalic, atraumatic Eye: Present: PERRL. Absent: conjunctival icterus ENT: Present: mucous membranes moist, oropharynx clear - Routine Respiratory Exam Present: wheezes, diminished air movement. Absent: rhonchi, crackles - Routine Cardiovascular Exam Present: RRR. Absent: murmur - Routine Abdominal Exam Present: soft, non distended, non tender - Routine Extremities Exam Present: no edema, pulses intact - Routine Skin Exam Present: dry, warm. Absent: rash - Routine Neurological Exam Present: alert, oriented X3, normal speech - Routine Psychiatric Exam Present: normal affect Results - Labs CBC & Chem 7: 10/31/17 05:04 10/31/17 05:04 Microbiology Results: Microbiology 10/30/17 07:59 Urine Legionella Urinary Antigen - Final 10/28/17 15:19 Peripheral/Iv Start Blood Culture - Preliminary No Growth After 2 Days 10/28/17 15:22 Peripheral/Iv Start Blood Culture - Preliminary No Growth After 2 Days 10/29/17 15:25 Sputum, Expectorated Gram Stain - Final 10/29/17 15:25 Sputum, Expectorated Sputum Culture - Preliminary Early growth - Impressions Date of Exam: 10/30/17 Ordering Provider: Stephie Hui MD Type of Exam(s): XR chest 2V Reason for Exam(s): hypoxia Indication: hypoxia PROCEDURE: XR chest 2V: Encounter: Initial Comparison: 10/28/2017 Findings: There is mild cardiomegaly with scattered patchy predominant perihilar interstitial parenchymal opacity, similar to prior exam. No definite lobar consolidation or pleural effusion. There is mild tortuosity of the descending thoracic aorta. There is mild degenerative disc disease of the thoracic spine. The vertebral body heights appear relatively well-preserved. Trachea is midline. No subdiaphragmatic free air. Impression: Cardiomegaly with moderate diffuse by predominant perihilar interstitial parenchymal opacity without lobar consolidation or pleural effusion. Assessment and Plan Assessment and Plan: Impression Acute hypoxic respiratory failure, present on admission. Hyponatremia (123), present on admission--> stable today --> Urine Na low, unclear if hypovolemic at admission, will monitor off IVF Incompletely treated influenza infection (4 day course of Tamiflu) Bilateral infiltrates, pulmonary edema versus pneumonia, improved with diuresis --> suspect some pulm edema + pneumonitis Possible sepsis: SIRS criteria include leukocytosis (12.5) and tachypnea (22) --> continue treatment with antibiotics + steroids + lasix; hold further IVF acutely COPD with exacerbation, on nebulized tx + steroids Atrial fibrillation, anticoagulated on Eliquis Hypertension. Valvular heart disease. Sleep apnea. Chronic kidney disease stage III. GERD BPH Anemia, stable with Hb 11.4 Plan Continues on ceftriaxone and doxycycline for coverage of possible bacterial pneumonia. Hyponatremia stable off of IVF. Taking more po. DC IV lasix and change to once daily po lasix 40 mg and monitor. 02 requirements improving slowly, continue to monitor on diuretics, steroids, antibiotics and nebulized treatments. Cardiology has been consulted; appreciate input, TTE results reviewed as per HPI. Vitals are stable. Labs reviewed. Will repeat labs in AM for surveillance. Laxatives ordered prn; will continue. DVT Prophylaxis: SCD's, Eliquis Resuscitation Status: Full Code - Physician Narrative Narrative: Date: 10/31/17 Time: 1120 Hospital Course Summary Disclaimer: The visit summary below is not to be considered part of the above Progress Note. Hospital Course: 10/28/17 Admit, inpatient status under the hospitalist service. Possible sepsis secondary to pneumonia: Rocephin and doxycycline have been initiated. Lactic acid and procalcitonin were both negative. IV fluids were started for hyponatremia and we will recheck sodium later this evening, however, given his chest x-ray findings, we may need to consider diuresis. He also has symptoms consistent with CHF and Dr. Ayala has been consulted. He is able to maintain saturations between 89 and 91% on 6 L of oxygen, however at some point he may need BiPAP. Continue Eliquis, monitor telemetry, continue amiodarone for A fib. For COPD with exacerbation, IV steroids have been started. Will schedule DuoNeb treatments every 4 hours and Pulmicort twice a day. We'll ask respiratory to provide tobacco cessation information. Nicotine patch will be available if needed. CODE STATUS: Patient would like to discuss with family before making a decision and for this reason will remain a full code. 10/29/17 Leukocytosis has improved. WBC 12.5-->9.1. Continues on ceftriaxone and doxycycline for coverage of possible bacterial pneumonia. Hyponatremia improving on 122-->126. Fena score 0% - consistent with pre-renal etiology as was expected. Continuing on normal saline for his hyponatremia. 8 L high flow oxygen to maintain sats greater than 90%. Weight is up almost 2 kg with improved Cr. Currently not on any diuretics. FeNa < 0.03% insistent with prerenal state despite radiographic findings suggestive heart failure. Cardiology has been consulted. Echo is pending. Appreciate Dr. Ayala's input. Continue IV steroids, DuoNeb and Pulmicort. 10/30/17 Leukocytosis worsening, likely due to steroids. Continues on ceftriaxone and doxycycline for coverage of possible bacterial pneumonia. Hyponatremia improving on saline, now taking po, will stop IVF and monitor on lasix 40 IV Q12H. Cr stbable at 1.1. 02 requirements improving slowly, continue to monitor on diuretics, steroids, antibiotics and nebulized treatments. Cardiology has been consulted. Echo is pending. Appreciate Dr. Ayala's input. Vitals are stable. Labs reviewed. Will repeat labs in AM for surveillance. Laxatives ordered prn; will schedule tomorrow if he has not had a bowel movement. 10/31/17 Continues on ceftriaxone and doxycycline for coverage of possible bacterial pneumonia. WBC stable. Hyponatremia stable off of IVF. Taking more po. DC IV lasix and change to once daily po lasix 40 mg and monitor. 02 requirements improving slowly, continue to monitor on diuretics, steroids, antibiotics and nebulized treatments. Cardiology has been consulted; appreciate input, TTE results reviewed as per HPI. Vitals are stable. Labs reviewed. Will repeat labs in AM for surveillance. Laxatives ordered prn; will continue.
[2017-10-31] MEDS: CEFTRIAXONE 1 G in NS 100 ML IV SCH (18:09)
[2017-10-31] MEDS: AMIODARONE 200 MG TABLET PO SCH (21:03)
[2017-10-31] MEDS: TAMSULOSIN 0.4 MG CAPSULE PO SCH (21:03)
[2017-11-01] MEDS: ALBUTEROL/IPRATROPIUM 2.5mg-0.5mg/3ml NEB AEROSOL SCH ×6 (02:00→21:14)
[2017-11-01] MEDS: METHYLPREDNISOLONE SOD SUCC 125mg/2ml INJECTION IVP SCH ×4 (03:35→20:58)
[2017-11-01] MEDS: SALINE FLUSH 10ml SYRINGE IV PRN ×3 (05:24→21:01)
[2017-11-01] MEDS: BUDESONIDE INH.SOLN 0.5mg/2ml NEB IPPB SCH ×2 (09:17→21:14)
[2017-11-01] MEDS: APIXABAN 5 MG TABLET PO SCH ×2 (09:49→20:58)
[2017-11-01] MEDS: LEVOTHYROXINE 25 MCG TABLET PO SCH (09:50)
[2017-11-01] MEDS: FUROSEMIDE 40 MG TABLET PO SCH (09:51)
[2017-11-01] MEDS: NICOTINE PATCH REMOVAL TD PRN (10:30)
[2017-11-01] MEDS: NICOTINE 14 MG PATCH TD PRN (10:30)
[2017-11-01] MEDS ORDERED: PHENYLEPHRINE 0.25% EA NOSTRIL PRN (11:29)
[2017-11-01] MEDS: SALINE 0.65% NASAL SPRAY 44 ML BOTTLE EA NOSTRIL SCH ×2 (11:52→20:59)
--- NOTE | 2017-11-01 12:09 | Cardiology Progress Note ---
<Lilian Davis - Last Filed: 11/02/17 09:43> Subjective Principal diagnosis: Dyspnea, cough Interval history: Nando is seen in follow up for CHF, he is fully dressed and up in the recliner. eating his lunch. He denies chest pain Exam Vital signs: Temperature 96.4 F L 11/01/17 09:40 Pulse Rate 89 11/01/17 09:40 Respiratory Rate 18 11/01/17 09:40 Blood Pressure 160/71 H 11/01/17 09:40 Pulse Oximetry 95 11/01/17 09:40 - Constitutional no acute distress, well nourished, cooperative - Routine HEENT Exam Head: Present: normocephalic ENT: Present: mucous membranes moist - Routine Neck Exam Absent: JVD, carotid bruit - Routine Chest/Breast/Axilla Exam Chest wall: Absent: tenderness - Routine Respiratory Exam Present: CTA bilaterally, diminished air movement - Routine Cardiovascular Exam Present: RRR, no murmur - Routine Abdominal Exam Present: soft, normoactive bowel sounds - Routine Extremities Exam Present: no edema - Routine Skin Exam Present: intact, dry, warm - Routine Neurological Exam Present: alert, oriented X3 - Routine Psychiatric Exam Present: normal affect, normal thought process - Additional findings Additional findings: Hydrocodone Bitart/Acetaminophen ([place] 5/325) 1 tab PO Q6H PRN PRN Reason: Pain Albuterol Sulfate (Proventil Neb (0.083%)) 5 mg AEROSOL Q2H PRN PRN Reason: Shortness of air/wheezing Albuterol/Ipratropium (Duoneb) 3 ml AEROSOL Q4H [facility] Last Admin: 11/01/17 09:17 Dose: 3 ml Amiodarone HCl ([place]) 200 mg PO HS [facility] Last Admin: 10/31/17 21:03 Dose: 200 mg Apixaban (Eliquis) 5 mg PO BID [facility] Last Admin: 11/01/17 09:49 Dose: 5 mg Atorvastatin Calcium (Lipitor) 40 mg PO HS [facility] Budesonide (Pulmicort Inhalation) 0.5 mg IPPB RTBID [facility] Last Admin: 11/01/17 09:17 Dose: 0.5 mg Cholecalciferol (Vit. D-3) 1,000 unit PO DAILY [facility] Last Admin: 11/01/17 10:11 Dose: 1,000 unit Doxycycline Hyclate (Vibramycin) 100 mg PO BIDWM [facility] Last Admin: 11/01/17 09:50 Dose: 100 mg Furosemide (Lasix) 40 mg PO DAILY [facility] Last Admin: 11/01/17 09:51 Dose: 40 mg Ceftriaxone Sodium 1 g/ Sodium (Chloride) 100 mls @ 200 mls/hr IV Q24H [facility] Last Infusion: 10/31/17 19:00 Dose: Infused Levothyroxine Sodium (Synthroid) 25 mcg PO DAILY [facility] Last Admin: 11/01/17 09:50 Dose: 25 mcg Methylprednisolone Sodium Succinate (Solu-Medrol) 62.5 mg IVP Q6HR [facility] Last Admin: 11/01/17 09:51 Dose: 62.5 mg Nicotine (Nicoderm) 14 mg TD DAILY PRN Last Admin: 11/01/17 10:30 Dose: 14 mg Nicotine (Nicotine Patch Removal) 1 removal TD DAILY PRN Last Admin: 11/01/17 10:30 Dose: 1 removal Phenylephrine HCl (Rashad-Synephrine Nasal [place] (Mild)) 2 spray EA NOSTRIL Q4H PRN PRN Reason: Nasal congestion Stop: 11/03/17 23:59 Potassium Chloride (K-Dur) 10 meq PO BIDWM [facility] Last Admin: 11/01/17 09:50 Dose: 10 meq Senna/Docusate Sodium (Senna Plus Tablet) 1 tab PO BID PRN PRN Reason: Constipation Last Admin: 10/31/17 21:09 Dose: 1 tab Sodium Chloride (Iv Flush) 10 - 40 ml IV PRN PRN PRN Reason: Flushing Last Admin: 11/01/17 05:24 Dose: 20 ml Sodium Chloride (Deep Sea Nasal Moisturizing [place]) 1 - 2 spray EA NOSTRIL BID [facility] Last Admin: 11/01/17 11:52 Dose: 2 spray Tamsulosin HCl (Flomax) 0.4 mg PO HS [facility] Last Admin: 10/31/17 21:03 Dose: 0.4 mg Results 11/01/17 03:50 11/02/17 04:17 CBC 11/01/17 Range/Units 03:50 WBC 12.9 H (4.5-11.0) T/MM3 RBC 3.67 L (4.50-5.90) M/MM3 Hgb 11.5 L (13.5-17.5) GM/DL Hct 33.4 L (41-53) % Plt Count 403 H (130-400) T/MM3 Comprehensive Metabolic Panel 11/01/17 Range/Units 03:50 Sodium 133 L (134-144) MEQ/L Potassium 3.9 (3.6-5) MEQ/L Chloride 96 L (98-107) MEQ/L Carbon Dioxide 29 (22-30) MEQ/L BUN 35.0 H (9-20) MG/DL Creatinine 1.0 (0.8-1.5) MG/DL Glucose 162 H (75-110) MG/DL Calcium 8.8 (8.4-10.2) MG/DL Albumin 2.9 L (3.5-5.0) G/DL Intake and Output 10/31/17 11/01/17 11/01/17 22:59 06:59 14:59 Intake Total 100 / 100 600 / 600 480 / 480 Output Total 800 / 800 1275 / 1275 475 / 475 Balance -700 / -700 -675 / -675 5 / 5 Intake: IV 100 / 100 Ceftriaxone 1 g In Ns 100 ml @ 100 / 100 200 mls/hr IV Q24H [facility] Rx#: [id number] Oral 600 / 600 480 / 480 Output: Urine 800 / 800 1275 / 1275 475 / 475 Other: Urine Appearance Clear Clear Clear Sediment Urine Color Yellow Yellow Yellow Urine Odor Normal Normal Normal Weight 164 lb 10.965 oz Patient Weight 11/02/17 06:59 Weight 164 lb 10.965 oz - Imaging and Cardiology Imaging & Cardiology Narrative: = = = = = = = = = = = = = = = = = = = = = = = = = = = = = = = = = = = = = = = = = = = = = = = = = = = = = = = = = = = Date of Exam: 10/30/17 Ordering Provider: Stephie Hui MD Type of Exam(s): XR chest 2V Reason for Exam(s): hypoxia Indication: hypoxia PROCEDURE: XR chest 2V: Encounter: Initial Comparison: 10/28/2017 Findings: There is mild cardiomegaly with scattered patchy predominant perihilar interstitial parenchymal opacity, similar to prior exam. No definite lobar consolidation or pleural effusion. There is mild tortuosity of the descending thoracic aorta. There is mild degenerative disc disease of the thoracic spine. The vertebral body heights appear relatively well-preserved. Trachea is midline. No subdiaphragmatic free air. Impression: Cardiomegaly with moderate diffuse by predominant perihilar interstitial parenchymal opacity without lobar consolidation or pleural effusion. 11/01/17 12:58 11/01/17 16:43 Date of Exam: 11/01/17 Ordering Provider: Lilian Davis APRN Type of Exam(s): XR chest 1V Reason for Exam(s): pulm edema Indication: pulm edema XR chest 1V: Comparison: 10/30/2017 Technique: AP portable Findings: Patient showed similar heart size the previous study with continued increased interstitial and even some alveolar density however this has improved slightly as the previous study. No significant pleural effusions are identified. Impression: Although patient still demonstrates some hazy increased interstitial prominence findings have improved since the recent prior exam. Heart is not enlarged. No pleural effusions are noted. Assessment and Plan - Assessment and Plan (1) Pulmonary edema Status: Acute - Continue Fluid restriction ordered 10/29/17 (1800mL) - Continue Lasix 40mg po Qday for diuresis - Monitor renal and electrolytes (2) Acute respiratory failure with hypoxemia Status: Acute (3) Paroxysmal atrial fibrillation Status: Chronic (4) Atherosclerotic heart disease of [place] coronary artery without angina pectoris Status: Chronic (5) Mixed hyperlipidemia Status: Chronic (6) Aortic aneurysm without rupture Status: Chronic (7) Hyponatremia Status: Acute - Assessment and Plan Pulmonary edema: Bilateral infiltrates most consistent with moderate to severe pulmonary edema seen on admission CXR - Diurese with Lasix 40mg IV q 12H - Replace potassium 10 meq BID - Fluid restriction please, NA 122 today Acute Resp. Failure: Requires high flow NC at 8L - per attending Hyponatremia: Na 122 today - Restrict fluid to 1800mL A Fib: Continue Amiodarone for antiarrhythmic therapy - Continue Eliquis for stroke prevention. HLD: Started on Atorvastatin on October 13, 2017. -Needs LFTs and Lipids in 6 weeks. Thank you for allowing us to participate in this patients care 11/01/17 Pulmonary edema- Repeat chest X-ray - Amlodipine 5mg daily for better BP control - Atorvastatin 40mg daily. - Continue Fluid restriction ordered 10/29/17 (1800mL) - Continue Lasix 40mg po Qday for diuresis - Monitor renal and electrolytes Hospital Course Summary Disclaimer: The visit summary below is not to be considered part of the above Progress Note. Hospital Course: 10/28/17 Admit, inpatient status under the hospitalist service. Possible sepsis secondary to pneumonia: Rocephin and doxycycline have been initiated. Lactic acid and procalcitonin were both negative. IV fluids were started for hyponatremia and we will recheck sodium later this evening, however, given his chest x-ray findings, we may need to consider diuresis. He also has symptoms consistent with CHF and Dr. Ayala has been consulted. He is able to maintain saturations between 89 and 91% on 6 L of oxygen, however at some point he may need BiPAP. Continue Eliquis, monitor telemetry, continue amiodarone for A fib. For COPD with exacerbation, IV steroids have been started. Will schedule DuoNeb treatments every 4 hours and Pulmicort twice a day. We'll ask respiratory to provide tobacco cessation information. Nicotine patch will be available if needed. CODE STATUS: Patient would like to discuss with family before making a decision and for this reason will remain a full code. <Len Ayala - Last Filed: 11/03/17 13:24> Exam Vital signs: Temperature 96.4 F L 11/02/17 07:30 Pulse Rate 90 11/02/17 13:45 Respiratory Rate 19 11/02/17 08:50 Blood Pressure 161/73 H 11/02/17 07:30 Pulse Oximetry 84 L 11/02/17 13:45 Results 11/01/17 03:50 11/02/17 04:17 Intake and Output 11/02/17 11/03/17 11/03/17 22:59 06:59 14:59 Intake Total 300 / 300 Output Total 600 / 600 Balance -300 / -300 Intake: Oral 300 / 300 Output: Urine 600 / 600 Other: Urine Color Yellow Assessment and Plan - Assessment and Plan (1) Acute respiratory failure with hypoxemia Status: Acute (2) Atherosclerotic heart disease of [place] coronary artery without angina pectoris Status: Chronic (3) Mixed hyperlipidemia Status: Chronic (4) Aortic aneurysm without rupture Status: Chronic (5) Paroxysmal atrial fibrillation Status: Chronic (6) Pulmonary edema Status: Acute (7) Hyponatremia Status: Acute - Attestation Attestation Narrative: 11/03/17 13:24 Recommendation After examining the patient I agree with the above assessment. I am involved in the formulation of the patient's plan of care. Hospital Course Summary Disclaimer: The visit summary below is not to be considered part of the above Progress Note.
--- NOTE | 2017-11-01 13:40 | XRay Report ---
Indication: pulm edema XR chest 1V: Comparison: 10/30/2017 Technique: AP portable Findings: Patient showed similar heart size the previous study with continued increased interstitial and even some alveolar density however this has improved slightly as the previous study. No significant pleural effusions are identified. Impression: Although patient still demonstrates some hazy increased interstitial prominence findings have improved since the recent prior exam. Heart is not enlarged. No pleural effusions are noted. .
[2017-11-01] MEDS: AMLODIPINE 5 MG TABLET PO SCH (13:45)
[2017-11-01] MEDS: CEFTRIAXONE 1 G in NS 100 ML IV SCH (15:44)
[2017-11-01] MEDS ORDERED: NS FLUSH BAG 500ml IV PRN (15:45)
[2017-11-01] MEDS ORDERED: BISACODYL 10 MG SUPPOSITORY RECTALLY PRN (18:01)
--- NOTE | 2017-11-01 18:04 | Progress Note ---
- Date 11/01/17 Subjective: Nando is feeling much better overall. His cough has improved. He is not feeling too short of breath but is still requiring oxygen. His appetite is good, and he is eating "too much". He denies feeling weak or dizzy, and has been ambulating through the halls with nursing staff. His biggest complaint is that his legs have ballooned up. Objective Vital signs: Temperature 96.4 F L 11/01/17 16:01 Pulse Rate 86 11/01/17 16:01 Respiratory Rate 18 11/01/17 16:01 Blood Pressure 157/73 H 11/01/17 16:01 Pulse Oximetry 93 11/01/17 16:01 Height/Weight/BMI: Height 1.8 m Weight 74.7 kg Body Mass Index 22.3 - Constitutional Present: no acute distress, well nourished, well developed, thin - Routine HEENT Exam Head: Present: normocephalic Eye: Absent: conjunctival icterus, scleral injection ENT: Present: mucous membranes moist, oropharynx clear - Routine Respiratory Exam Present: diminished air movement Comments: Slightly coarse breath sounds throughout lung anand - Routine Cardiovascular Exam Present: RRR, S1, S2 - Routine Abdominal Exam Present: soft, normoactive bowel sounds, non distended, non tender - Routine Extremities Exam Present: edema (1-2+ lower extremity edema) - Routine Skin Exam Present: intact, dry, warm - Routine Neurological Exam Present: alert, oriented X3, normal speech - Routine Psychiatric Exam Present: normal affect, normal thought process, cooperative Results - Labs CBC & Chem 7: 11/01/17 03:50 11/01/17 03:50 Microbiology Results: Microbiology 10/28/17 15:19 Peripheral/Iv Start Blood Culture - Preliminary No Growth After 4 Days 10/28/17 15:22 Peripheral/Iv Start Blood Culture - Preliminary No Growth After 4 Days 10/29/17 15:25 Sputum, Expectorated Gram Stain - Final 10/29/17 15:25 Sputum, Expectorated Sputum Culture - Final Normal Respiratory Priscilla 10/30/17 07:59 Urine Legionella Urinary Antigen - Final Assessment and Plan (1) Acute respiratory failure with hypoxemia Current visit: Yes Status: Acute Assessment and Plan: Impression Acute hypoxic respiratory failure, present on admission. Hyponatremia (123), present on admission--> stable --> Urine Na low, Incompletely treated influenza infection (4 day course of Tamiflu) Bilateral infiltrates, pulmonary edema versus pneumonia, improved with diuresis --> suspect some pulm edema + pneumonitis Possible sepsis: SIRS criteria include leukocytosis (12.5) and tachypnea (22) --> continue treatment with antibiotics COPD with exacerbation, on nebulized tx + steroids Atrial fibrillation, anticoagulated on Eliquis Hypertension. Valvular heart disease. Sleep apnea. Chronic kidney disease stage III. GERD BPH Anemia, stable Plan Continue ceftriaxone and doxycycline for possible pneumonia. Today is day #5 of treatment. Chest x-ray shows improvement. Hyponatremia stable off of IVF; increased slightly to 133. His weight has gone up by 2 kg. Continue with daily Lasix 40 mg, and will give an additional 20 mg with lunch tomorrow. Oxygen demands are decreasing and he's down to 2 L. Will taper IV steroids to twice a day. Encourage ambulation/activity. Schedule Senna Plus; MOM PRN. DVT Prophylaxis: Eliquis Resuscitation Status: Full Code - Physician Narrative Physician: Stephie Hui MD Narrative: Date: 11/01/17 Time: 2100 I have independently evaluated and examined this patient. I reviewed the chart, the patient's history, and the C[employer] SAL[employer] AUDIT CLERK/PA's documented findings as above. We discussed and formulated the assessment and plan as above with additions as below: Mr. Taylor was seen earlier today and reported dyspnea and cough of improved significantly although he expressed concern about ankle edema. Fluid balance is positive about 5 L since admission but oxygenation has improved significantly as has hyponatremia and urine output. NAD, alert Faint crackles at the left base but otherwise respirations are nonlabored and breath sounds clear Regular rhythm, S1-S2, LV lift palpable Trace/+1 edema present Hyperpigmentation consistent with amiodarone present dorsal surface of the hands Continue gentle diuresis, agree with decreasing steroids-if stable tomorrow we' ll plan to convert to prednisone. Discontinue ceftriaxone-5 days completed; discontinued doxycycline tomorrow morning after 10th dose. Chest x-ray this a.m. reviewed by myself demonstrating no focal infiltrate or heart failure. Initial prominence described previously has resolved. Hospital Course Summary Disclaimer: The visit summary below is not to be considered part of the above Progress Note. Hospital Course: 10/28/17 Admit, inpatient status under the hospitalist service. Possible sepsis secondary to pneumonia: Rocephin and doxycycline have been initiated. Lactic acid and procalcitonin were both negative. IV fluids were started for hyponatremia and we will recheck sodium later this evening, however, given his chest x-ray findings, we may need to consider diuresis. He also has symptoms consistent with CHF and Dr. Ayala has been consulted. He is able to maintain saturations between 89 and 91% on 6 L of oxygen, however at some point he may need BiPAP. Continue Eliquis, monitor telemetry, continue amiodarone for A fib. For COPD with exacerbation, IV steroids have been started. Will schedule DuoNeb treatments every 4 hours and Pulmicort twice a day. We'll ask respiratory to provide tobacco cessation information. Nicotine patch will be available if needed. CODE STATUS: Patient would like to discuss with family before making a decision and for this reason will remain a full code. 10/29/17 Leukocytosis has improved. WBC 12.5-->9.1. Continues on ceftriaxone and doxycycline for coverage of possible bacterial pneumonia. Hyponatremia improving on 122-->126. Fena score 0% - consistent with pre-renal etiology as was expected. Continuing on normal saline for his hyponatremia. 8 L high flow oxygen to maintain sats greater than 90%. Weight is up almost 2 kg. Currently not on any diuretics. 10/30/17 Leukocytosis worsening, likely due to steroids. Continues on ceftriaxone and doxycycline for coverage of possible bacterial pneumonia. Hyponatremia improving on saline, now taking po, will stop IVF and monitor on lasix 40 IV Q12H. Cr stbable at 1.1. 02 requirements improving slowly, continue to monitor on diuretics, steroids, antibiotics and nebulized treatments. 10/31/17 Continues on ceftriaxone and doxycycline for coverage of possible bacterial pneumonia. Hyponatremia stable off of IVF. Taking more po. DC IV lasix and change to once daily po lasix 40 mg and monitor. 11/01/17 Continue ceftriaxone and doxycycline for possible pneumonia. Today is day #5 of treatment. Chest x-ray shows improvement. Hyponatremia stable off of IVF; increased slightly to 133. His weight has gone up by 2 kg. Continue with daily Lasix 40 mg, and will give an additional 20 mg with lunch tomorrow. Oxygen demands are decreasing and he's down to 2 L. Will taper IV steroids to twice a day. Encourage ambulation/activity. Schedule Senna Plus; MOM PRN.
[2017-11-01] MEDS: TAMSULOSIN 0.4 MG CAPSULE PO SCH (20:58)
[2017-11-01] MEDS: AMIODARONE 200 MG TABLET PO SCH (20:58)
[2017-11-01] MEDS ORDERED: ATORVASTATIN 40 MG TABLET PO SCH (21:00)
[2017-11-01] MEDS: SENNA + DOCUSATE TABLET PO SCH (21:01)
[2017-11-02] MEDS: ALBUTEROL/IPRATROPIUM 2.5mg-0.5mg/3ml NEB AEROSOL SCH ×2 (04:45→04:57)
[2017-11-02] MEDS: SALINE FLUSH 10ml SYRINGE IV PRN (05:07)
[2017-11-02 07:32] VITALS: BP 161/73; TEMP 96.4
[2017-11-02] MEDS: BUDESONIDE INH.SOLN 0.5mg/2ml NEB IPPB SCH (08:50)
[2017-11-02] MEDS ORDERED: ALBUTEROL/IPRATROPIUM 2.5mg-0.5mg/3ml NEB AEROSOL SCH (09:00)
[2017-11-02 09:06] VITALS: RESP 19
[2017-11-02] MEDS: METHYLPREDNISOLONE SOD SUCC 125mg/2ml INJECTION IVP SCH (09:34)
[2017-11-02] MEDS: APIXABAN 5 MG TABLET PO SCH (09:35)
[2017-11-02] MEDS: FUROSEMIDE 40 MG TABLET PO SCH (09:35)
[2017-11-02] MEDS: SENNA + DOCUSATE TABLET PO SCH (09:35)
[2017-11-02] MEDS: LEVOTHYROXINE 25 MCG TABLET PO SCH (09:35)
[2017-11-02] MEDS: SALINE 0.65% NASAL SPRAY 44 ML BOTTLE EA NOSTRIL SCH (09:36)
[2017-11-02] MEDS: AMLODIPINE 5 MG TABLET PO SCH (09:36)
--- NOTE | 2017-11-02 09:47 | Cardiology Progress Note ---
<Lilian Davis - Last Filed: 11/02/17 09:44> Subjective Principal diagnosis: Dyspnea, cough Interval history: Nando is seen in follow up for CHF, he is up in the recliner, states he is feeling better today and breathing is easier. He denies chest pain Exam Vital signs: Temperature 96.4 F L 11/02/17 07:30 Pulse Rate 80 11/02/17 07:30 Respiratory Rate 19 11/02/17 08:50 Blood Pressure 161/73 H 11/02/17 07:30 Pulse Oximetry 97 11/02/17 08:50 - Constitutional no acute distress, well nourished, cooperative - Routine HEENT Exam Head: Present: normocephalic ENT: Present: mucous membranes moist - Routine Neck Exam Absent: JVD, carotid bruit - Routine Chest/Breast/Axilla Exam Chest wall: Absent: tenderness - Routine Respiratory Exam Present: decreased breath sounds, CTA bilaterally - Routine Cardiovascular Exam Present: RRR, no murmur - Routine Abdominal Exam Present: soft, normoactive bowel sounds - Routine Extremities Exam Present: no edema - Routine Skin Exam Present: intact, dry, warm - Routine Neurological Exam Present: alert, oriented X3 - Routine Psychiatric Exam Present: normal affect, normal thought process - Additional findings Additional findings: Hydrocodone Bitart/Acetaminophen (Carbon 5/325) 1 tab PO Q6H PRN PRN Reason: Pain Albuterol Sulfate (Proventil Neb (0.083%)) 5 mg AEROSOL Q2H PRN PRN Reason: Shortness of air/wheezing Albuterol/Ipratropium (Duoneb) 3 ml AEROSOL BID [facility] Last Admin: 11/02/17 08:50 Dose: 3 ml Amiodarone HCl (Pacerone) 200 mg PO [facility] Last Admin: 11/01/17 20:58 Dose: 200 mg Amlodipine Besylate (Norvasc) 5 mg PO DAILY [facility] Last Admin: 11/02/17 09:36 Dose: 5 mg Apixaban (Eliquis) 5 mg PO BID [facility] Last Admin: 11/02/17 09:35 Dose: 5 mg Atorvastatin Calcium (Lipitor) 40 mg PO [facility] Last Admin: 11/01/17 20:58 Dose: 40 mg Bisacodyl (Dulcolax) 10 mg RECTALLY DAILY PRN PRN Reason: Constipation Budesonide (Pulmicort Inhalation) 0.5 mg IPPB RTBID [facility] Last Admin: 11/02/17 08:50 Dose: 0.5 mg Cholecalciferol (Vit. D-3) 1,000 unit PO DAILY [facility] Last Admin: 11/02/17 09:35 Dose: 1,000 unit Furosemide (Lasix) 40 mg PO DAILY [facility] Last Admin: 11/02/17 09:35 Dose: 40 mg Furosemide (Lasix) 20 mg IVP ONCE ONE Stop: 11/02/17 12:01 Levothyroxine Sodium (Synthroid) 25 mcg PO DAILY [facility] Last Admin: 11/02/17 09:35 Dose: 25 mcg Magnesium Hydroxide (Mom) 30 ml PO DAILY PRN PRN Reason: Constipation Methylprednisolone Sodium Succinate (Solu-Medrol) 62.5 mg IVP Q12HR [facility] Last Admin: 11/02/17 09:34 Dose: 62.5 mg Nicotine (Nicoderm) 14 mg TD DAILY PRN Last Admin: 11/01/17 10:30 Dose: 14 mg Nicotine (Nicotine Patch Removal) 1 removal TD DAILY PRN Last Admin: 11/01/17 10:30 Dose: 1 removal Phenylephrine HCl (Rashad-Synephrine Nasal [place] (Mild)) 2 spray EA NOSTRIL Q4H PRN PRN Reason: Nasal congestion Stop: 11/03/17 23:59 Potassium Chloride (K-Dur) 10 meq PO BIDWM [facility] Last Admin: 11/02/17 09:36 Dose: 10 meq Potassium Chloride (K-Dur 10 Meq Tablet) 10 meq PO WB ONE Stop: 11/03/17 08:01 Senna/Docusate Sodium (Senna Plus Tablet) 1 tab PO BID [facility] Last Admin: 11/02/17 09:35 Dose: 1 tab Sodium Chloride (Iv Flush) 10 - 40 ml IV PRN PRN PRN Reason: Flushing Last Admin: 11/02/17 05:07 Dose: 10 ml Sodium Chloride (Deep Sea Nasal Moisturizing [place]) 1 - 2 spray EA NOSTRIL BID [facility] Last Admin: 11/02/17 09:36 Dose: 1 spray Sodium Chloride (Normal Saline) 500 ml IV PRN PRN Last Admin: 11/01/17 15:46 Dose: 500 ml Tamsulosin HCl (Flomax) 0.4 mg PO HS [facility] Last Admin: 11/01/17 20:58 Dose: 0.4 mg Results 11/01/17 03:50 11/02/17 04:17 Comprehensive Metabolic Panel 11/02/17 Range/Units 04:17 Sodium 132 L (134-144) MEQ/L Potassium 4.2 (3.6-5) MEQ/L Chloride 94 L (98-107) MEQ/L Carbon Dioxide 31 H (22-30) MEQ/L BUN 39.0 H (9-20) MG/DL Creatinine 1.1 (0.8-1.5) MG/DL Glucose 146 H (75-110) MG/DL Calcium 9.2 (8.4-10.2) MG/DL Intake and Output 11/01/17 11/02/17 11/02/17 22:59 06:59 14:59 Intake Total 100 / 100 100 / 100 700 / 700 Output Total 1000 / 1000 650 / 650 Balance -900 / -900 -550 / -550 700 / 700 Intake: IV 100 / 100 Ceftriaxone 1 g In Ns 100 ml @ 100 / 100 200 mls/hr IV Q24H [facility] Rx#: [id number] Oral 100 / 100 700 / 700 Output: Urine 1000 / 1000 650 / 650 Other: Urine Appearance Clear Urine Color Yellow Dark Yellow Urine Odor Normal Strong Weight 162 lb 4.163 oz Patient Weight 11/03/17 06:59 Weight 162 lb 4.163 oz Assessment and Plan - Assessment and Plan (1) Pulmonary edema Status: Acute (2) Acute respiratory failure with hypoxemia Status: Acute (3) Paroxysmal atrial fibrillation Status: Chronic (4) Atherosclerotic heart disease of [place] coronary artery without angina pectoris Status: Chronic (5) Mixed hyperlipidemia Status: Chronic (6) Aortic aneurysm without rupture Status: Chronic (7) Hyponatremia Status: Acute - Assessment and Plan Pulmonary edema: Bilateral infiltrates most consistent with moderate to severe pulmonary edema seen on admission CXR - Diurese with Lasix 40mg IV q 12H - Replace potassium 10 meq BID - Fluid restriction please, NA 122 today Acute Resp. Failure: Requires high flow NC at 8L - per attending Hyponatremia: Na 122 today - Restrict fluid to 1800mL A Fib: Continue Amiodarone for antiarrhythmic therapy - Continue Eliquis for stroke prevention. HLD: Started on Atorvastatin on October 13, 2017. -Needs LFTs and Lipids in 6 weeks. Thank you for allowing us to participate in this patients care 11/01/17 Pulmonary edema- Repeat chest X-ray - Amlodipine 5mg daily for better BP control - Atorvastatin 40mg daily. - Continue Fluid restriction ordered 10/29/17 (1800mL) - Continue Lasix 40mg po Qday for diuresis - Monitor renal and electrolytes 11/02/17 BP suboptimal control, has had 1 dose Amlodipine, continue and monitor, may need to increase. - Fluid -1135, continue fluid restriction and diuresis. Hospital Course Summary Disclaimer: The visit summary below is not to be considered part of the above Progress Note. Hospital Course: 10/28/17 Admit, inpatient status under the hospitalist service. Possible sepsis secondary to pneumonia: Rocephin and doxycycline have been initiated. Lactic acid and procalcitonin were both negative. IV fluids were started for hyponatremia and we will recheck sodium later this evening, however, given his chest x-ray findings, we may need to consider diuresis. He also has symptoms consistent with CHF and Dr. Ayala has been consulted. He is able to maintain saturations between 89 and 91% on 6 L of oxygen, however at some point he may need BiPAP. Continue Eliquis, monitor telemetry, continue amiodarone for A fib. For COPD with exacerbation, IV steroids have been started. Will schedule DuoNeb treatments every 4 hours and Pulmicort twice a day. We'll ask respiratory to provide tobacco cessation information. Nicotine patch will be available if needed. CODE STATUS: Patient would like to discuss with family before making a decision and for this reason will remain a full code. <Len Ayala - Last Filed: 11/03/17 13:43> Exam Vital signs: Temperature 96.4 F L 11/02/17 07:30 Pulse Rate 90 11/02/17 13:45 Respiratory Rate 19 11/02/17 08:50 Blood Pressure 161/73 H 11/02/17 07:30 Pulse Oximetry 84 L 11/02/17 13:45 Results 11/01/17 03:50 11/02/17 04:17 Intake and Output 11/02/17 11/03/17 11/03/17 22:59 06:59 14:59 Intake Total 300 / 300 Output Total 600 / 600 Balance -300 / -300 Intake: Oral 300 / 300 Output: Urine 600 / 600 Other: Urine Color Yellow Assessment and Plan - Assessment and Plan (1) Acute respiratory failure with hypoxemia Status: Acute (2) Atherosclerotic heart disease of [place] coronary artery without angina pectoris Status: Chronic (3) Mixed hyperlipidemia Status: Chronic (4) Aortic aneurysm without rupture Status: Chronic (5) Paroxysmal atrial fibrillation Status: Chronic (6) Pulmonary edema Status: Acute (7) Hyponatremia Status: Acute - Attestation Attestation Narrative: 11/03/17 13:43 Recommendation After examining the patient I agree with the above assessment. I am involved in the formulation of the patient's plan of care. Hospital Course Summary Disclaimer: The visit summary below is not to be considered part of the above Progress Note.
[2017-11-02] MEDS ORDERED: FUROSEMIDE 20 MG/2 ML INJECTION IVP ONE (12:00)
--- NOTE | 2017-11-02 13:55 | Discharge Summary ---
Discharge Information Date of admission: 10/28/17 13:57 Anticipated date of discharge: 11/02/17 Attending Physician: Stephie Hui MD Primary care physician: Klever Bullock DO Consults: Consulting Provider: Len Ayala - Discharge Diagnosis (1) Acute respiratory failure with hypoxemia Status: Acute Acute hypoxic respiratory failure, present on admission - improved Hyponatremia (123), present on admission--> stable --> Urine Na low Influenza Bilateral infiltrates, pulmonary edema versus pneumonia, improved with diuresis --> suspect some pulm edema + pneumonitis Possible sepsis: SIRS criteria include leukocytosis (12.5) and tachypnea (22) --> continue treatment with antibiotics COPD with exacerbation Atrial fibrillation, anticoagulated on Eliquis Hypertension. Valvular heart disease. Sleep apnea. Chronic kidney disease stage III. GERD BPH Anemia, stable - Procedures Procedures: Date of Exam: 10/29/17 Type of Exam(s): US echo doppler complete DATE OF PROCEDURE 10/29/2017 This is a two-dimensional echo with spectral Doppler, color-flow and M-mode. It was obtained in a patient with congestive heart failure. Left atrial dimension is normal. Left ventricular end-diastolic dimension is normal. Left ventricular wall thickness is normal. LV systolic function is normal with ejection fraction of about 55%. Right atrium is normal. Right ventricle is normal. Aortic root dimension is normal. Mitral valve is morphologically normal with mild mitral regurgitation. Aortic valve is a trileaflet structure with mild fibrocalcific changes with no stenosis. Mild-to- moderate aortic insufficiency is present. Tricuspid valve shows mild tricuspid regurgitation with mild pulmonary hypertension with estimated pulmonary artery systolic pressure of 36. Pulmonary valve shows trace of pulmonary insufficiency. There is no pericardial effusion. IMPRESSION 1. Normal LV systolic function with ejection fraction of 55%. 2. Mild mitral regurgitation. 3. Aortic sclerosis with [id number] aortic insufficiency. 4. Mild tricuspid regurgitation with mild pulmonary hypertension with estimated pulmonary artery pressure of 36. 5. Trace of pulmonary insufficiency. Ambulatory oximetry on 11/02/17: Oxygen saturation 84% on room air, saturation with minimal exercise on room air 84%; requires 2 L oxygen at rest and 3 L with activity to maintain saturation at /above 90%. - Laboratory Labs: 11/01/17 03:50 11/02/17 04:17 Laboratory Tests 10/29/17 10/30/1718 19:39 16:19 04:17 Sodium 129 L 133 L 132 L Laboratory Tests 10/30/17 04:17 B-Natriuretic Peptide 2470 H Laboratory Tests 10/28/17 10/30/17 11/01/17 15:19 04:17 03:50 Hgb 12.4 L 11.3 L 11.5 L Laboratory Tests 10/28/17 10/30/17 11/01/17 15:19 04:17 03:50 WBC 12.5 H 16.1 H D 12.9 H Laboratory Tests 10/28/17 10/30/17 11/01/17 15:19 04:17 03:50 Plt Count 359 386 403 H Laboratory Tests 10/28/17 15:35 ABG pH 7.500 H ABG pCO2 32 L ABG pO2 57 L ABG HCO3 25 ABG Total CO2 26.0 ABG O2 Saturation 92.0 L ABG Base Excess 2.3 H O2 Delivery Method Cannula FiO2 (liters per min) 6 Laboratory Tests 10/29/17 10/29/17 10/29/17 11:36 11:36 11:36 Urine Osmolality 612 Ur Random Creatinine 124.6 Ur Random Sodium < 5 L - Microbiology Microbiology Blood Culture - Preliminary No Growth After 4 Days Sputum, Expectorated Sputum Culture - Final Normal Respiratory Priscilla - Radiology Radiology: Date of Exam: 10/28/17 Indication: acute hypoxic resp failure PROCEDURE: XR chest 1V: Findings: Prominent interstitial and airspace opacity bilaterally without lobar consolidation. Small bilateral effusions. No pneumothorax. Heart size is at the upper limits of normal. Mediastinal contours are within normal limits. Impression: Bilateral infiltrates with an appearance most consistent with moderate to severe pulmonary edema. = = = = = = = = = = = = = = = = = = = = = = = = = = = = = = = = = = = = = = = = = = = = = = = = = = = = = = = = = = = Date of Exam: 10/30/17 Indication: hypoxia PROCEDURE: XR chest 2V: Findings: There is mild cardiomegaly with scattered patchy predominant perihilar interstitial parenchymal opacity, similar to prior exam. No definite lobar consolidation or pleural effusion. There is mild tortuosity of the descending thoracic aorta. There is mild degenerative disc disease of the thoracic spine. The vertebral body heights appear relatively well-preserved. Trachea is midline. No subdiaphragmatic free air. Impression: Cardiomegaly with moderate diffuse by predominant perihilar interstitial parenchymal opacity without lobar consolidation or pleural effusion. = = = = = = = = = = = = = = = = = = = = = = = = = = = = = = = = = = = = = = = = = = = = = = = = = = = = = = = = = = = Date of Exam: 11/01/17 Indication: pulm edema XR chest 1V: Findings: Patient showed similar heart size the previous study with continued increased interstitial and even some alveolar density however this has improved slightly as the previous study. No significant pleural effusions are identified. Impression: Although patient still demonstrates some hazy increased interstitial prominence findings have improved since the recent prior exam. Heart is not enlarged. No pleural effusions are noted. History of Present Illness HPI: Nanod Taylor is a 77 year old male directly admitted from Dr. Bullock's office for acute respiratory failure/hypoxia with saturation of 76% on room air. Mr. Taylor began to feel ill with a cough soon after [place] '. His symptoms became quite a bit worse about a week into October, with worsening cough, productive with pale yellow sputum by this time. He denied having sinus drainage /congestion or dysphagia. His breathing became more short, feeling dyspneic even at rest let alone with activity. He was running fevers and having chills. He has felt weak and lightheaded. He saw Dr. Bullock around 10/22/17 and was diagnosed with influenza and was Rx Tamiflu, but only completed 4 days of this b /c he was started to feel worse. reported hallucinations to Dr. Bullock, but she was not present for interview upon admission. Nando denied any confusion or mental status changes. He has not been eating well, and realized he was becoming dehydrated so started to drink large amounts of water over the last 2- 3 days. Around this time his breathing became quite a bit worse. He started noticing a little leg swelling. He denied chest pain or PND and was still able to sleep in bed rather than propping himself up. He quit smoking 2 days ago. He denied any nausea/vomiting but has had a little diarrhea. He denies seeing any blood in his stool. He denies any urinary pain, frequency, or hematuria. No rashes or wounds. 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 He followed up with Dr. Bullock on 10/28/17, at which time he was coughing so hard he nearly had posttussive emesis and became lightheaded with a coughing attack. Temp was 100.2. As mentioned, he was markedly hypoxic. Dr. Bullock contacted Dr. Hui, and Mr. Taylor was admitted to [facility] as an inpatient for further evaluation/treatment of acute hypoxia and to r/o sepsis. LOS is expected to exceed 2 overnights. Objective Vital signs: Temperature 96.4 F L 11/02/17 07:30 Pulse Rate 86 11/02/17 08:00 Respiratory Rate 19 11/02/17 08:50 Blood Pressure 161/73 H 11/02/17 07:30 Pulse Oximetry 97 11/02/17 08:50 Height/Weight/BMI: Height 1.8 m Weight 73.6 kg Body Mass Index 22.3 - Constitutional Present: no acute distress, well nourished, well developed - Routine HEENT Exam Head: Present: normocephalic, atraumatic - Routine Respiratory Exam Present: CTA bilaterally. Absent: wheezes - Routine Cardiovascular Exam Present: RRR, no murmur - Routine Abdominal Exam Present: soft, non distended, non tender - Routine Extremities Exam Present: edema (tr b/l), normal capillary refill - Routine Skin Exam Present: dry, warm - Routine Neurological Exam Present: alert, oriented X3 - Routine Lymphatic Exam Lymphatic: Absent: adenopathy - Routine Psychiatric Exam Present: normal affect, cooperative Hospital Course This is a general summary of the patient's hospital course. For more details refer to the complete medical record. Hospital course: 10/28/17 Admit, inpatient status under the hospitalist service. Possible sepsis secondary to pneumonia: Rocephin and doxycycline have been initiated. Lactic acid and procalcitonin were both negative. IV fluids were started for hyponatremia and we will recheck sodium later this evening, however, given his chest x-ray findings, we may need to consider diuresis. He also has symptoms consistent with CHF and Dr. Ayala has been consulted. He is able to maintain saturations between 89 and 91% on 6 L of oxygen, however at some point he may need BiPAP. Continue Eliquis, monitor telemetry, continue amiodarone for A fib. For COPD with exacerbation, IV steroids have been started. Will schedule DuoNeb treatments every 4 hours and Pulmicort twice a day. We'll ask respiratory to provide tobacco cessation information. Nicotine patch will be available if needed. CODE STATUS: Patient would like to discuss with family before making a decision and for this reason will remain a full code. 10/29/17 Leukocytosis has improved. WBC 12.5-->9.1. Continues on ceftriaxone and doxycycline for coverage of possible bacterial pneumonia. Hyponatremia improving on 122-->126. Fena score 0% - consistent with pre-renal etiology as was expected. Continuing on normal saline for his hyponatremia. 8 L high flow oxygen to maintain sats greater than 90%. Weight is up almost 2 kg. Currently not on any diuretics. 10/30/17 Leukocytosis worsening, likely due to steroids. Continues on ceftriaxone and doxycycline for coverage of possible bacterial pneumonia. Hyponatremia improving on saline, now taking po, will stop IVF and monitor on lasix 40 IV Q12H. Cr stbable at 1.1. 02 requirements improving slowly, continue to monitor on diuretics, steroids, antibiotics and nebulized treatments. 10/31/17 Continues on ceftriaxone and doxycycline for coverage of possible bacterial pneumonia. Hyponatremia stable off of IVF. Taking more po. DC IV lasix and change to once daily po lasix 40 mg and monitor. 11/01/17 Continue ceftriaxone and doxycycline for possible pneumonia. Today is day #5 of treatment. Chest x-ray shows improvement. Hyponatremia stable off of IVF; increased slightly to 133. His weight has gone up by 2 kg. Continue with daily Lasix 40 mg, and will give an additional 20 mg with lunch tomorrow. Oxygen demands are decreasing and he's down to 2 L. Will taper IV steroids to twice a day. Encourage ambulation/activity. Schedule Senna Plus; MOM PRN. 11/02/17 DC today. Continue amlodipine 5 mg daily. Check blood pressures to 3 times a week and take blood pressure log follow-up appointment with Dr. Ayala on November 19. Continue Lasix 40 mg daily and potassium 20 mEq twice a day. Continue fluid restrict of 1800 cc. Qualifies for home - arrangements made to go home on O2. Currently on Solu-Medrol 62.5 mg IV. Start Prednisone 40mg q day tomorrow am x 4 days then 20mg x 4 days then DC. Completed 5 days of doxy and Rocephin in hospital. Follow-up with Dr. Bullock in 1 week with [facility]. Time spent with patient: greater than 35 minutes Resuscitation Status: Full Code Discharge Plan - Discharge Disposition Discharge Date: 11/02/17 Disposition: Discharged Home, Self-Care *Condition: Stable Reason For Visit (Visit label in EMR): Pneumonia - Discharge Medications *Discharge Medications: New Albuterol/Ipratropium [Duoneb] 3 ml AEROSOL BID #60 vial Amlodipine [Norvasc] 5 mg PO DAILY #30 tab Atorvastatin [Lipitor] 40 mg PO HS #30 tab Furosemide [Lasix] 40 mg PO DAILY #30 tab Potassium Chloride [K-DUR 10 mEq Tablet] 10 meq PO BIDWM #60 tab PredniSONE [Deltasone] 20 mg PO WB #12 tab Continue Tamsulosin [Flomax] 1 cap PO HS Cholecalciferol (Vitamin D3) [Vitamin D3] 1 tab PO DAILY Ascorbate Calcium [Vitamin C] 500 mg PO DAILY Vitamin B Complex [Super B-50 Complex] 1 each PO DAILY Levothyroxine Sodium 25 mcg PO DAILY Amiodarone [Pacerone] 1 tab PO DAILY Acetaminophen [Tylenol] 500 mg PO O Apixaban [Eliquis] 5 mg PO BID - Discharge Packet/Instructions *Diet: low-salt diet. *Activity: As tolerated *Pain Management/Treatment: N/a *Wound Care: N/a Additional Instructions: Take your blood pressure 2-3 times a week. Bring those readings to your follow-up appointment with Dr. Ayala on November 19. Continue fluid restriction of 1800ml (1.8 liters) per day. *Expected Signs/Symptoms: Continued improvement *Notify Physician if: You have increasing shortness of breath, increase of swelling, or fever *During Business Hours Contact: Dr. Bullock or Dr. Ayala *After Business Hours Contact: The above offices and follow after-hours instructions *Pending Lab/Results: No Pending Lab - Referrals/Follow Up *Referrals/Follow Up: Len Ayala MD [Physician] - (Appointment on November 19 at 1110) Klever Bullock DO [Family Provider] - 1 Week (needs BMP at that visit APPOINTMENT ON 11/10 AT 10:45.) - Patient Handouts Patient Handouts: Hypoxia (GEN), Pneumonia (GEN) - Dismissal Complete Discharge Instructions are:: Complete Physician Narrative - Narrative Physician: Stephie Hui MD Attestation Narrative: Date: 11/02/17 Time: 1620 I have independently evaluated and examined this patient. I reviewed the chart, the patient's history, and the SURVEILLANCE AGENT/PA's documented findings as above. We discussed and formulated the assessment and plan as above with additions as below: Mr. Taylor reports feeling significantly improved. He reports he is going home today. He is not resting well in the hospital. He continues to be short of breath with activity and has edema in his lower extremities but thinks edema is slightly improved today. Oxygen saturation on room air was 84% and he desaturated further with ambulation. He will require 2 L of supplemental oxygen at rest and 3 L with activities to maintain saturations of 90%. Supplemental oxygen has been coordinated. The patient is alert and moving about the room comfortably with oxygen on. Respirations are nonlabored and airflow is good although crackles persist at the bases Cardiac rhythm is regular, and LV lift is palpable +1 edema present Stable for discharge with home oxygen, antibiotics completed. Anticipate further improvement in edema as steroids tapered and with further diuresis.
[2017-11-02 14:01] VITALS: PULSE 90; O2SAT 84
[2017-11-03] MEDS ORDERED: PredniSONE 20 MG TABLET PO SCH (08:00)
== END 2017-11-02 16:12 | disposition home or self-care (01) | DRG 871 ==
LOC: MED 13:57
PROVIDERS: ADMIT Internal Medicine; ATTEND Internal Medicine